=== PATIENT | male | born 1965 | race American Indian/Alaskan Native ===

== ENCOUNTER → 2017-05-15 | Outpatient (CLI) | payer BC ==
[~2017-05-15] MED LIST: ANT25 PO; LISI20TA3 PO; METH-589 PO; PRT/20 PO; RTL20 PO
--- NOTE | 2017-05-15 14:19 | DIAGNOSTIC IMAGING REPORT ---
BRAIN COMBO CLINICAL HISTORY: MIGRAINES headache COMPARISON STUDY: 04/19/2015 TECHNIQUE: Utilizing a 1.5 Nica magnet and dedicated coil, multiplanar, multiecho imaging of the brain was performed pre and postcontrast administration. IV administration of 8.5 mL of Gadavist contrast was uneventful. FINDINGS: Diffusion-weighted images are negative for an acute ischemic insult. Study again demonstrates multiple foci of increased signal within the periventricular and cerebral hemispheres bilaterally. These are unchanged compared to the prior exam. There is no significant postcontrast enhancement. Ventricular system is midline. Sella and parasellar regions are unremarkable. No evidence for abnormal postcontrast enhancement. IMPRESSION: 1. No change compared to the prior study. 2. Multiple small foci of increased signal within the cerebral hemispheres bilaterally. 3. The appearance is most consistent with that of a patient with a history of chronic headache, with chronic small vessel change or demyelinating disorder secondary considerations. The above report was generated using voice recognition software. It may contain grammatical, syntax or spelling errors. Electronically signed by: Jamil العلي M.D. 05/15/2017 2:17 PM Dictated Date/Time: 05/15/2017 2:13 PM
== END | disposition home or self-care (01) ==
LOC: C.MRIBC 13:24
PROVIDERS: ATTEND Family Medicine
DX: G43.909 Migraine, unspecified, not intractable, without status migrainosus (principal)

== ENCOUNTER → 2017-12-14 | Outpatient (CLI) | payer OTHER ==
--- NOTE | 2017-12-14 15:03 | DIAGNOSTIC IMAGING REPORT ---
ULTRASOUND ABDOMEN COMPLETE CLINICAL HISTORY: Right upper quadrant abdominal pain.. COMPARISON STUDY: Abdominal CT dated 11/05/2014. TECHNIQUE: Real-time, grayscale, and color flow sonography of the abdomen was performed. Images are reviewed in the transverse and longitudinal planes. FINDINGS: Liver: The liver is normal in size and demonstrates heterogeneously increased echotexture consistent with hepatic steatosis. There is no intrahepatic biliary ductal dilatation. The main portal vein is patent. Gallbladder: The gallbladder is normal in appearance. No gallstones are identified. There is no gallbladder wall thickening or pericholecystic fluid. A sonographic De Paz's sign is reportedly absent. The common bile duct measures up to 0.5 cm in diameter. Pancreas: Visualized portions of the pancreatic head and body are normal in appearance. Spleen: The spleen is normal in size and echotexture, measuring 8.6 cm in length. Kidneys: The kidneys are normal in size and echotexture. There is no hydronephrosis. The right kidney measures 9.7 cm in length and the left kidney measures 10.3 cm in length. No shadowing calculi are identified. Abdominal vasculature: Visualized portions of the abdominal aorta and IVC are normal in apparent. Ascites: None. IMPRESSION: 1. No acute sonographic abnormality is identified. No gallstones are seen. 2. Hepatic steatosis. Electronically signed by: Cosmo Devine M.D. 12/14/2017 3:01 PM Dictated Date/Time: 12/14/2017 3:00 PM
== END | disposition home or self-care (01) ==
LOC: C.ULTR 13:34
PROVIDERS: ATTEND Student in an Organized Health Care Education/Training Program
DX: R10.11 Right upper quadrant pain (principal); R19.8 Other specified symptoms and signs involving the digestive system and abdomen; K76.0 Fatty (change of) liver, not elsewhere classified

== ENCOUNTER → 2017-12-14 | Outpatient (CLI) | payer OTHER ==
[2017-12-14 12:20] LABS: BASO % 0.2 %; BASO ABS # 0.01 K/uL (0-0.2); EOS % 1.6 %; HEMATOCRIT 46.4 % (42-52); HEMOGLOBIN 16.3 g/dL (14.0-18.0); IG# 0.02 K/uL (0.00-0.02); LYMPH % 26.6 %; LYMPH ABS # 1.62 K/uL (1.2-3.4); MEAN CELL VOLUME 91.3 fL (80-100); MEAN CORPUSCULAR HEMOGLOBIN 32.1 pg (25-34); MEAN CORPUSCULAR HGB CONC 35.1 g/dl (32-36); MEAN PLATELET VOLUME 8.8 fL (7.4-10.4); MONO % 10.5 %; MONO ABS # 0.64 K/uL (0.11-0.59); NEUT % 60.8 %; PLATELET COUNT 249 K/uL (130-400); RED CELL DISTRIBUTION WIDTH CV 12.7 % (11.5-14.5); RED CELL DISTRIBUTION WIDTH SD 42.4 fL (36.4-46.3); WHITE BLOOD COUNT 6.09 K/uL (4.8-10.8)
[2017-12-14 12:39] LABS: ALBUMIN 3.9 gm/dl (3.4-5.0); ALT/SGPT 52 U/L (12-78); BLOOD UREA NITROGEN 15 mg/dl (7-18); CALCIUM 9.2 mg/dl (8.5-10.1); CARBON DIOXIDE 24 mmol/L (21-32); CREATININE 0.86 mg/dl (0.60-1.40); GLUCOSE 104 mg/dl (70-99); LIPASE 256 U/L (73-393); POTASSIUM 3.9 mmol/L (3.5-5.1); SODIUM 137 mmol/L (136-145)
[2017-12-14 12:44] LABS: ALKALINE PHOSPHATASE 76 U/L (45-117); AST/SGOT 27 U/L (15-37); TOTAL PROTEIN 7.8 gm/dl (6.4-8.2)
== END | disposition home or self-care (01) ==
LOC: C.LAB1850 10:31
PROVIDERS: ATTEND Student in an Organized Health Care Education/Training Program
DX: R10.11 Right upper quadrant pain (principal); R19.8 Other specified symptoms and signs involving the digestive system and abdomen

== ENCOUNTER → 2018-02-01 | Day surgery (SDC) | payer OTHER ==
[2018-01-22 16:43] VITALS: Ht 177.8 cm; Wt 127.7 kg
[~2018-02-01] VITALS: Ht 177.8 cm; Wt 127.7 kg
[~2018-02-01] MED LIST changes: -ANT25 PO; +HYDR200T5 PO; +LIDOCAINE HCL 2% 2 ML VIAL (20MG/ML) ONE; -METH-589 PO; +NAPR1TAB9 PO; +PROPOFOL IV EMULSION 10 MG/ML 20 ML VIAL IV ONE; +VERA180C2 PO
--- NOTE | 2018-02-01 13:12 | Endo History and Physical ---
History & Physical Date of Service: Feb 01, 2018. Chief Complaint: RUQ pain,early satiety,hx.colon polyps Referring Physician: Dr. Alyssa Braun,and Dr. Aaliyah Brand History of Present Illness For EGD and colonoscopy Past Medical History Hypertension, Thyroid Disease Past Surgical History Hx Cardiac Surgery: No Hx Internal Defibrillator: No Hx Pacemaker: No Hx Abdominal Surgery: Yes (HERNIA REPAIR) Hx of Implantable Prosthesis: No Hx Post-Op Nausea and Vomiting: No Hx Cancer Surgery: No Hx Thoracic Surgery: No Hx Orthopedic: Yes (RIGHT ANKLE FRACTURE REPAIR 30 YEARS AGO, L KNEE MENISCUS REPAIR) Hx Urinary Tract Surgery: No Family History None Social History Smoking Status: Former Smoker Hx Substance Use: Yes (MARIJUANA ONCE A MONTH) Hx Alcohol Use: Yes (BEER 2-3X A WEEK, STOPPED A MONTH AGO) Allergies Coded Allergies: Careless [place] (Verified Allergy, Mild, 04/21/15) POLLEN (Verified Allergy, Mild, 04/21/15) Current Medications Reported Home Medications Medications Dose Route/Sig Max Daily Dose Days Date Category Aleve (Naproxen) 220 Mg Tab 220 Mg PO PRN 01/22/18 Reported Verapamil Hcl Er (Verapamil Hcl) 180 Mg Cap 1 Tab PO QAM 01/22/18 Reported Plaquenil (Hydroxychloroquine Sulfate) 200 Mg Tab 400 Mg PO HS 01/22/18 Reported Protonix (Pantoprazole Sodium) 20 Mg Tab 40 Mg PO HS 11/05/14 Reported Prinivil (Lisinopril) 20 Mg Tab 10 Mg PO DAILY 11/05/14 Reported Ritalin (Methylphenidate HCl) 20 Mg Tab 40 Mg PO DAILY 11/05/14 Reported Vital Signs Weight (Kilograms): 127.73 Height (Feet): 5 Height (Inches): 10 Date Time Temp Pulse Resp B/P (MAP) Pulse Ox O2 Delivery O2 Flow Rate FiO2 02/01/18 12:34 37 92 20 131/91 (104) 95 Room Air Physical Exam General Appearance: + obese Respiratory/Chest: Respiratory effort: no dyspnea Cardiovascular: Heart Auscultation: RRR Abdomen: Inspection & Palpation: soft (RUQ pain, hx polyps for EGD and colonoscopy) Assessment and Plan RUQ pain, hx polyps for EGD and colonoscopy
--- NOTE | 2018-02-01 13:49 | Discharge Instructions ---
Endoscopy Patient Instructions Date / Procedure(s) Performed Feb 01, 2018. Colonoscopy, EGD Allergy Information Coded Allergies: Careless [place] (Verified Allergy, Mild, 04/21/15) POLLEN (Verified Allergy, Mild, 04/21/15) Discharge Date / Findings Feb 01, 2018. Gastric polyp, normal colon Medication Instructions Stopped Medication(s): did not take Ritalin Restart Stopped Medication(s): resume meds Reported Home Medications Medications Dose Route/Sig Max Daily Dose Days Date Category Aleve (Naproxen) 220 Mg Tab 220 Mg PO PRN 01/22/18 Reported Verapamil Hcl Er (Verapamil Hcl) 180 Mg Cap 1 Tab PO QAM 01/22/18 Reported Plaquenil (Hydroxychloroquine Sulfate) 200 Mg Tab 400 Mg PO HS 01/22/18 Reported Protonix (Pantoprazole Sodium) 20 Mg Tab 40 Mg PO HS 11/05/14 Reported Prinivil (Lisinopril) 20 Mg Tab 10 Mg PO DAILY 11/05/14 Reported Ritalin (Methylphenidate HCl) 20 Mg Tab 40 Mg PO DAILY 11/05/14 Reported Provider Instructions Activity Restrictions - No exercising or heavy lifting for 24 hours. - Do not drink alcohol the day of the procedure. - Do not drive a car or operate machinery until the day after the procedure. - Do not make any important decisions or sign important papers in 24 hours after the procedure. Following Day: - Return to full activity which may include returning to work/school. Diet Start your diet with liquids and light foods (jello, soup, juice, toast). Then eat your usual diet if not nauseated. Treatment For Common After Affects For mild abdominal pain, bloating, or excessive gas: - Rest - Eat lightly - Lie on right side Follow-Up Information Follow-up with Dr. Alyssa Braun,and Dr. Aaliyah Brand as scheduled Anesthesia Information What You Should Know You have had a procedure that required some medicine to reduce anxiety and discomfort. This treatment is called moderate sedation. After receiving the treatment, you may be sleepy, but you will be able to breathe on your own. The effects of the treatment may last for several hours. Follow these instructions along with Activity/Diet recommendations noted above: * Do NOT do anything where dizziness or clumsiness would be dangerous. * Rest quietly at home today, then you can be up and about tomorrow. * Have a responsible person stay with you the rest of today. * You may have had an I.V. today. If so, you may take the dressing off later today. Recommendations Call your doctor if: * Trouble breathing * Continuous vomiting for more than 24 hours * Temperature above 101 degrees * Severe abdominal pain or bloating * Pain not relieved by pain medicine ordered * There is increased drainage or redness from any incision * A large amount of rectal bleeding greater than 2-3 tablespoons. (If you had a polyp/s removed or have hemorrhoids, a small amount of blood - from the rectum is to be expected.) * You have any unanswered questions or concerns. IN THE EVENT OF A SERIOUS EMERGENCY, GO TO THE NEAREST EMERGENCY ROOM Your discharge instructions were prepared by provider Frankie Lucero. Patient Instructions Signature Page Travis Payton Patient (or Guardian) Signature/Date: I have read and understand the instructions given to me by my caregivers. Caregiver/RN/Doctor Signature/Date: The above-named patient and/or guardian has received patient instructions on this date. + Original Patient Signature Page (only) stays with chart. Please make copy for patient.
--- NOTE | 2018-02-01 13:53 | GI REPORT ---
Patient Name: Travis Payton Procedure Date: 02/01/2018 1:22 PM Date of : 1965 Admit Type: Outpatient Age: 52 Gender: Male Attending MD: Frankie Lucero MD Procedure: Upper GI endoscopy Providers: Frankie Lucero MD Referring MD: Alyssa Braun Indications: Abdominal pain in the right upper quadrant, Early satiety Medicines: Propofol total dose 280 mg IV, Lidocaine 80 mg IV Complications: No immediate complications. Estimated Blood Loss: Estimated blood loss: none. Procedure: Pre-Anesthesia Assessment: - Prior to the procedure, a History and Physical was performed, and patient medications, allergies and sensitivities were reviewed. The patient's tolerance of previous anesthesia was reviewed. - The risks and benefits of the procedure and the sedation options and risks were discussed with the patient. All questions were answered and informed consent was obtained. After obtaining informed consent, the endoscope was passed under direct vision. Throughout the procedure, the patient's blood pressure, pulse, and oxygen saturations were monitored continuously. The Scope was introduced through the mouth, and advanced to the second part of duodenum. The upper GI endoscopy was accomplished without difficulty. The patient tolerated the procedure well. Findings: The Z-line was regular and was found 40 cm from the incisors. The examined esophagus was normal. A single 10 mm pedunculated polyp with no bleeding and stigmata of recent bleeding was found in the gastric body. The polyp was removed with a hot snare. Resection and retrieval were complete. Estimated blood loss: none. The examined duodenum was normal. Impression: - Z-line regular, 40 cm from the incisors. - Normal esophagus. - A single gastric polyp. Resected and retrieved. - Normal examined duodenum. Recommendation: - Discharge patient to home (ambulatory). - Continue present medications. - Await pathology results. - Return to primary care physician PRN. Frankie Lucero M.D. Frankie Lucero MD 02/01/2018 1:53:19 PM This report has been signed electronically. Note Initiated On: 02/01/2018 1:22 PM Number of Addenda: 0 I attest to the content of the Intraoperative Record and orders documented therein, exceptions below {[id number]}
--- NOTE | 2018-02-01 13:55 | GI REPORT ---
Patient Name: Travis Payton Procedure Date: 02/01/2018 1:36 PM Date of : 1965 Admit Type: Outpatient Age: 52 Gender: Male Attending MD: Frankie Lucero MD Procedure: Colonoscopy Providers: Frankie Lucero MD Referring MD: Alyssa Braun Indications: Personal history of colonic polyps Medicines: Propofol total dose 380 mg IV, Lidocaine 80 mg IV Complications: No immediate complications. Estimated Blood Loss: Estimated blood loss: none. Procedure: Pre-Anesthesia Assessment: - Prior to the procedure, a History and Physical was performed, and patient medications, allergies and sensitivities were reviewed. The patient's tolerance of previous anesthesia was reviewed. - The risks and benefits of the procedure and the sedation options and risks were discussed with the patient. All questions were answered and informed consent was obtained. After I obtained informed consent, the scope was passed under direct vision. Throughout the procedure, the patient's blood pressure, pulse, and oxygen saturations were monitored continuously. The scope was introduced through the anus and advanced to the terminal ileum. The colonoscopy was performed without difficulty. The patient tolerated the procedure well. The quality of the bowel preparation was excellent. Findings: The terminal ileum appeared normal. The entire examined colon appeared normal. Impression: - The examined portion of the ileum was normal. - The entire examined colon is normal. - No specimens collected. Recommendation: - Discharge patient to home (ambulatory). - Continue present medications. - Repeat colonoscopy in 5 years for surveillance. - Return to primary care physician PRN. Frankie Lucero M.D. Frankie Lucero MD 02/01/2018 1:55:30 PM This report has been signed electronically. Note Initiated On: 02/01/2018 1:36 PM Number of Addenda: 0 I attest to the content of the Intraoperative Record and orders documented therein, exceptions below {[id number]}
[2018-02-01 14:23] VITALS: BP 132/90; PULSE 74; O2SAT 97
--- NOTE | 2018-02-01 14:50 | Anesthesiology Progress Note ---
Anesthesia Post Op Note Date & Time Feb 01, 2018 at 14:49 Vital Signs Pain Intensity: 0 Vital Signs Past 12 Hours Date Time Temp Pulse Resp B/P (MAP) Pulse Ox O2 Delivery O2 Flow Rate FiO2 02/01/18 14:23 74 20 132/90 (104) 97 Room Air 02/01/18 14:07 73 20 126/94 (105) 95 Room Air 02/01/18 13:52 95 20 96/67 (77) 95 Room Air 02/01/18 12:34 37 92 20 131/91 (104) 95 Room Air Notes Mental Status: alert / awake / arousable, participated in evaluation Pt Amnestic to Procedure: Yes Nausea / Vomiting: adequately controlled Pain: adequately controlled Airway Patency, RR, SpO2: stable & adequate BP & HR: stable & adequate Hydration State: stable & adequate Anesthetic Complications: no major complications apparent
== END | disposition home or self-care (01) ==
LOC: C.GI 12:05
PROVIDERS: ATTEND Internal Medicine Gastroenterology
DX: R10.11 Right upper quadrant pain (principal); R68.81 Early satiety; Z86.010 Personal history of colon polyps; K31.7 Polyp of stomach and duodenum; G47.33 Obstructive sleep apnea (adult) (pediatric); M19.90 Unspecified osteoarthritis, unspecified site; E66.9 Obesity, unspecified; Z68.41 Body mass index [BMI] 40.0-44.9, adult; Z98.890 Other specified postprocedural states; Z87.891 Personal history of nicotine dependence; F12.90 Cannabis use, unspecified, uncomplicated; Z79.899 Other long term (current) drug therapy